=== PATIENT | male | born 1960 | race African-American/Black ===

== ENCOUNTER 2021-08-08 01:31 | Day surgery (SDC) | payer OTHER, SELFPAY ==
[2021-07-29 13:57] VITALS: BMI 30.2
[2021-08-08 08:38] VITALS: BP 156/76; PULSE 69; RESP 18; TEMP 36.7; O2SAT 98
--- NOTE | 2021-08-08 08:49 | P.PNAN_ITS ---
Anes - Initial Pre Proc Eval Procedure: Operation Date: 08/08/21 09:30 Proposed Procedures p Screening Colonoscopy - Adalberto Boland MD Date/Time: 08/08/21 08:49 Surgeon: Adalberto Boland MD Pre Op Diagnosis: neoplasm screening Patient Data Age: 60 Gender: M Height: 1.88 m Weight: 108.9 kg Last Vital Signs Temp 36.7 C 08/08/21 08:38 Pulse 69 08/08/21 08:38 Resp 18 08/08/21 08:38 BP 156/76 H 08/08/21 08:38 Pulse Ox 98 08/08/21 08:38 Allergies Allergy/AdvReac Type Severity Reaction Status Date / Time No Known Allergies Allergy Unknown Verified 08/08/21 08:36 Home Medications Medication Instructions Recorded Confirmed Type finasteride 5 mg tablet 5 mg PO DAILY #90 tablet 05/24/21 08/08/21 Rx montelukast 10 mg tablet 10 mg PO DAILY 05/24/21 08/08/21 History tamsulosin 0.4 mg capsule 0.4 mg PO DAILY #90 cap 05/24/21 08/08/21 Rx Patient hx anesthesia problems: none Family hx anesthesia problems: none Results Review: All pre-operative results and documents have been reviewed as part of the pre-operative evaluation. [facility] Past Medical History Medical History (Updated 08/08/21 @ 08:49 by Brant Muñoz MD) Hyperlipidemia Normal colonoscopy 04/27 Obesity Surgical History Surgical History History of arthroscopy of right knee 2017 Family History Family History Other Family history of malignant neoplasm Family history of osteoarthritis Social History Social History Smoking status: Never smoker Second hand tobacco smoke exposure: No Alcohol intake: never Drinks per week: 1 Substance use: never Substance use type: does not use Living arrangements: alone Gender identity (if verbalized by the patient): Male Sexual Orientation (if Verbalized by the Patient): Straight or Heterosexual Spiritual care concerns: No Agree to blood products: Yes Anes - Eval Final PreProcedure Day of Procedure 08/08/21 08:49 Patient weight: obese Heart: regular rate and rhythm Lungs: clear to auscultation Airway: Mallampati scale class II Neurological: alert and oriented Last oral intake: >/= 8 hours ASA classification: II Emergent: no Anesthetic plan: proceed Anesthesia type and monitoring: general GIVS and standard monitoring Results Review: All pre-operative results and documents have been reviewed as part of the pre-operative evaluation. Informed Consent: The patient's anesthetic plan and its attendant risks and benefits were discussed with the patient/family/POA. Questions were solicited and answers provided to the satisfaction of the patient/family/POA.
[2021-08-08] MEDS: LACTATED RINGERS 1,000 ML 150 ML IV CONT (08:50)
--- NOTE | 2021-08-08 09:12 | P.CONGI_ITS ---
Assessment and Plan Assessment and plan (1) Encounter for screening colonoscopy: Code(s): Z12.11 - Encounter for screening for malignant neoplasm of colon Status: Acute Assessment and Plan: Patient presents for screening colonoscopy. High-fiber diet is recommended. Fiber stool softener such as Metamucil may be beneficial. Further recommendations will be given after endoscopy. GI Consult Note Consult date/time: 08/08/21 09:12 HPI: Brant Shaver is a 60 year old male Presents for screening colonoscopy. Patient reports that his current weight appetite bowel movements are normal. He denies abdominal pain. He has had no bleeding. Patient has had difficulty with bowel movements since starting on BPH medication. Patient denies any bleeding. He has had no weight loss. Family history is noncontributory. Last colonoscopy was 10 years ago was unremarkable. Review of Systems Review of Systems: All systems reviewed & are unremarkable except as noted in HPI and below PMFSH Past Medical History Medical History (Updated 08/08/21 @ 09:13 by Adalberto Boland MD) Hyperlipidemia Normal colonoscopy 04/27 Obesity Surgical History Surgical History History of arthroscopy of right knee 2017 Family History Family History Other Family history of malignant neoplasm Family history of osteoarthritis Social History Social History Smoking status: Never smoker Second hand tobacco smoke exposure: No Alcohol intake: never Drinks per week: 1 Substance use: never Substance use type: does not use Living arrangements: alone Gender identity (if verbalized by the patient): Male Sexual Orientation (if Verbalized by the Patient): Straight or Heterosexual Spiritual care concerns: No Agree to blood products: Yes Meds Home Medications and Allergies Home Medications Medication Instructions Recorded Confirmed Type finasteride 5 mg tablet 5 mg PO DAILY #90 tablet 05/24/21 08/08/21 Rx montelukast 10 mg tablet 10 mg PO DAILY 05/24/21 08/08/21 History tamsulosin 0.4 mg capsule 0.4 mg PO DAILY #90 cap 05/24/21 08/08/21 Rx Allergies Allergy/AdvReac Type Severity Reaction Status Date / Time No Known Allergies Allergy Unknown Verified 08/08/21 08:36 Vital Signs Vital Signs - 24 hr 08/08/21 08:38 Temperature 98.0 F Pulse Rate 69 Respiratory Rate 18 Blood Pressure 156/76 H Pulse Oximetry 98 Exam Narrative: Physical exam reveals patient to be alert. Vital signs stable. HEENT exam is unremarkable. Patient is anicteric. Lungs are clear to ausculta tion and percussion. Heart is without murmur or extra sounds. Abdomen bowel sounds are present soft nontender with no organomegaly. Digital external rectal exam is normal.
[2021-08-08 09:34] VITALS: BP 122/65; PULSE 60; RESP 21; O2SAT 97
[2021-08-08 09:44] VITALS: BP 123/72; PULSE 60; RESP 21; O2SAT 99
[2021-08-08 09:54] VITALS: BP 107/77; PULSE 57; RESP 17; O2SAT 100
== END 2021-08-08 10:04 | disposition home or self-care (01) ==
PROVIDERS: PCP Family Medicine Adolescent Medicine; Visit Provider Internal Medicine Gastroenterology
PROC: 0DJD8ZZ Inspection of Lower Intestinal Tract, Via Natural or Artificial Opening Endoscopic (ICD-10-PCS; CPT 45378; principal; 2021-08-08 09:30)
DX: Z12.11 Encounter for screening for malignant neoplasm of colon (principal); K57.30 Diverticulosis of large intestine without perforation or abscess without bleeding; K64.8 Other hemorrhoids; E78.5 Hyperlipidemia, unspecified; E66.9 Obesity, unspecified; Z68.30 Body mass index [BMI] 30.0-30.9, adult
CPT/HCPCS: 45378; J2704; J7120

== ENCOUNTER 2022-05-16 16:21 | Outpatient (CLI) | payer OTHER, SELFPAY ==
--- NOTE | ~2022-05-16 | XR_ITS ---
EXAM: XR knee LT 3V DATE: 05/16/2022 16:49 HISTORY: M17.12 - Unilateral primary osteoarthritis, left knee . COMPARISON: 03/19/2017, images only. FINDINGS: Normal mineralization. No fracture or dislocation. No lytic or blastic lesion. Moderate me dial and severe lateral joint space narrowing. Moderate tricompartmental osteophytosis. No erosion or periosteal change. Soft tissues within normal limits. Small volume joint fluid. IMPRESSION: Tricompartmental osteoarthritis of the left knee, severe in the lateral compartment. Reviewed, dictated and finalized at location [facility] [employer] IMPRESSION: Tricompartmental osteoarthritis of the left knee, severe in the lat eral compartment.
== END 2022-05-16 16:22 ==
LOC: MICIMG 16:23
PROVIDERS: PCP Family Medicine Adolescent Medicine; Visit Provider Family Medicine Adolescent Medicine
DX: M17.12 Unilateral primary osteoarthritis, left knee (principal)
CPT/HCPCS: 73562

== ENCOUNTER 2022-10-03 06:26 | Emergency (ER) | payer OTHER, SELFPAY ==
[2022-10-03 06:35] VITALS: BP 153/71; PULSE 61; RESP 18; TEMP 36.4; O2SAT 100
[2022-10-03 06:44] VITALS: O2SAT 100
--- NOTE | 2022-10-03 07:30 | ED.GENADULT ---
HPI - General Adult General Chief complaint: Unspecified Stated complaint: choking incident Time Seen by Provider: 10/03/22 07:23 History of Present Illness HPI narrative: Pt says he feels congested and had a lot of mucous this morning and took a haqnd ful of vitamins and he felt like they got stuck. Pt tried to swallow fluids and it came back up. Pt says now he feels fine and thinks it all passed but thought he should get checked out. Pt able to swallow liquids here. Related Data Allergies Allergy/AdvReac Type Severity Reaction Status Date / Time No Known Allergies Allergy Unknown Verified 10/03/22 06:44 Review of Systems Review of Systems: All systems reviewed & are unremarkable except as noted in HPI and below PMFSH Past Medical History Medical History Hyperlipidemia Normal colonoscopy 04/27 Obesity Urinary frequency Surgical History Surgical History History of arthroscopy of right knee 2016 Family History Family History Other Family history of malignant neoplasm Family history of osteoarthritis Social History Social History Smoking status: Never smoker Second hand tobacco smoke exposure: No Alcohol intake: never Drinks per week: 1 Substance use: never Substance use type: does not use Living arrangements: alone Occupation/Education: occupation Gender identity (if verbalized by the patient): Male Sexual Orientation (if Verbalized by the Patient): Straight or Heterosexual Spiritual care concerns: No Agree to blood products: Yes Exam Const: General: cooperative, healthy appearing, comfortable and no acute distress Orientation/consciousness: oriented to person Limitations: no limitations Neck: Neck: normal visual inspection and full ROM Resp: Effort & Inspection: normal respiratory effort Auscultation: clear to auscultation bilaterally Cardio: Rate: regular rate Rhythm: regular rhythm GI: Inspection: normal to inspection GI Palp: No abdominal tenderness Auscultation: normal bowel sounds Skin: General skin exam: normal color Neuro: General: patient oriented x3, moves all extremities, no meningeal signs and CN's II-XI intact bilaterally Cognition (Neuro): normal cognition Speech: normal speech Motor exam (neuro): 5/5 motor strength present throughout Sensory Exam: normal sensation Extrem: General: full ROM Course Vital Signs Vital signs: Vital Signs Temperature 97.5 F L 10/03/22 06:35 Pulse Rate 61 10/03/22 06:35 Respiratory Rate 18 10/03/22 06:35 Blood Pressure 153/71 H 10/03/22 06:35 Pulse Oximetry 100 10/03/22 06:35 Oxygen Delivery Room Air 10/03/22 06:35 Temperature 97.5 F L 10/03/22 06:35 Pulse Rate 84 10/03/22 07:45 Respiratory Rate 16 10/03/22 07:45 Blood Pressure 142/86 H 10/03/22 07:45 Pulse Oximetry 97 10/03/22 07:45 Oxygen Delivery Room Air 10/03/22 06:44 Medical Decision Making MDM Narrative Medical decision making narrative: Pt had trouble getting down handful of pills but has now passed. May have small stricture and it sounds like he has sinusitis. Will treat sinusitis and give GI follow up if persists Vital Signs Vital Signs: Vital Signs Temperature 97.5 F L 10/03/22 06:35 Pulse Rate 61 10/03/22 06:35 Respiratory Rate 18 10/03/22 06:35 Blood Pressure 153/71 H 10/03/22 06:35 Pulse Oximetry 100 10/03/22 06:35 Oxygen Delivery Room Air 10/03/22 06:35 Temperature 97.5 F L 10/03/22 06:35 Pulse Rate 84 10/03/22 07:45 Respiratory Rate 16 10/03/22 07:45 Blood Pressure 142/86 H 10/03/22 07:45 Pulse Oximetry 97 10/03/22 07:45 Oxygen Delivery Room Air 10/03/22 06:44 Discharge Plan Discharge Clinical Impression: Sinusitis, Esophageal stricture
[2022-10-03 07:45] VITALS: BP 142/86; PULSE 84; RESP 16; O2SAT 97
== END 2022-10-03 07:45 | disposition home or self-care (01) ==
PROVIDERS: Emergency Provider Emergency Medicine; PCP Family Medicine Adolescent Medicine
DX: J32.9 Chronic sinusitis, unspecified (principal); K22.2 Esophageal obstruction; E78.5 Hyperlipidemia, unspecified; E66.9 Obesity, unspecified; Z68.30 Body mass index [BMI] 30.0-30.9, adult
CPT/HCPCS: 99283